=== PATIENT | male | born 1970 | race Caucasian/White ===

== ENCOUNTER 2018-01-06 04:15 | Emergency (ER) | payer BC ==
[~2018-01-06] VITALS: Ht 180.3 cm; Wt 120.2 kg
--- NOTE | 2018-01-06 04:25 | NUR ---
TO BED 2 AMBULATORY C/O R FLANK PAIN X3 HRS. PT AAOX4 NO ACUTE DISTRESS NOTED, RESP EVEN AND UNLABORED. PT UABLE TO PROVIDE URINE SAMPLE AT THIS TIME. ER MD AWARE. ER MD AT BEDSIDE TO EVAL PT WITH ORDERS RECEIVED. WILL CARRY OUT ORDERS.
[2018-01-06] MEDS ORDERED: ONDANSETRON HCL/PF 4 MG/2 ML VIAL ONE (04:38)
[2018-01-06] MEDS ORDERED: KETOROLAC TROMETHAMINE INJ 30 MG/ML VIAL ONE (04:38)
--- NOTE | 2018-01-06 04:48 | NUR ---
medicated pt as ordered
[2018-01-06 04:52] LABS: HEMATOCRIT 44 % (39-51); HEMOGLOBIN 14.5 g/dL (13.5-17.5); MEAN CORPUSCULAR HEMOGLOBIN 30 PG (26.0-33.0); MEAN CORPUSCULAR HGB CONC 33 g/dl (31.0-36.0); MEAN CORPUSCULAR VOLUME 91 fL (80-96); NEUTROPHILS % (AUTO) 83.7 % (43.0-81.0); PLATELET COUNT (AUTO) 299 /CMM (150-450); RDW COEFFICIENT OF VARIATION 14.3 (11.5-15.0); RED BLOOD CELL COUNT(AUTO) 4.81 MIL/uL (4.5-6.0); WHITE BLOOD COUNT (AUTO) 13.7 K/uL (4.3-11.0)
[2018-01-06 04:53] LABS: BASOPHILS # (AUTO) 0.1 /CMM (0.0-0.2); BASOPHILS % (AUTO) 0.4 % (0.0-2.0); EOSINOPHILS % (AUTO) 0.2 % (0.0-6.0); LYMPHOCYTES # (AUTO) 1.5 /CMM (0.8-4.8); LYMPHOCYTES % (AUTO) 11.2 % (20.0-44.0); MONOCYTES # (AUTO) 0.6 /CMM (0.1-1.30); MONOCYTES % (AUTO) 4.5 % (2.0-12.0); NEUTROPHILS # (AUTO) 11.5 /CMM (1.8-8.9)
[2018-01-06] MEDS ORDERED: IV NS 0.9% 1,000 ML BAG IV ONE (05:00)
[2018-01-06] MEDS ORDERED: KETOROLAC TROMETHAMINE INJ 30 MG/ML VIAL IV ONE (05:00)
[2018-01-06] MEDS ORDERED: ONDANSETRON HCL/PF 4 MG/2 ML VIAL IVP ONE (05:00)
[2018-01-06 05:11] LABS: CREATININE 1.5 mg/dL (0.6-1.3); POTASSIUM 4.2 mmol/L (3.5-5.1)
[2018-01-06 05:16] LABS: ALBUMIN 3.8 g/dL (3.4-5.0); BILIRUBIN,DIRECT 0.1 mg/dL (0.0-0.2); BILIRUBIN,TOTAL 0.8 mg/dL (0.2-1.0); TOTAL PROTEIN, SERUM 7.8 g/dL (6.4-8.2)
--- NOTE | 2018-01-06 05:33 | NUR ---
PT BACK FROM RADIOLOGY. PENDING CT ABD/PELVIS RESULT.
--- NOTE | 2018-01-06 06:14 | NUR ---
AAO X4; Denies any new or worsening sx's at this time. No s/s of adverse reaction noted at this time. Resp even and unlabored. Patient discharged to home in stable condition. Written and verbal after care instructions given. Patient verbalizes understanding of instruction. IV removed. Catheter intact and site benign. Pressure and 4x4 applied to site. No bleeding noted. Ambulatory with a steady gait
[2018-01-06 06:17] VITALS: BP 158/89
== END 2018-01-06 06:20 | disposition home or self-care (01) ==
LOC: ER 04:17
DX: N20.1 Calculus of ureter (principal); N23 Unspecified renal colic; I10 Essential (primary) hypertension
CPT/HCPCS: 36415; 74176; 80048; 80076; 82962; 83690; 85025; 96374; 96375; 99285; A4606; J1885; J2405; J7030; Z7610